=== PATIENT | male | born 2000 | race Caucasian/White ===

== ENCOUNTER 2018-07-22 11:26 | Outpatient (REF) | payer OTHER, SELFPAY | END 2018-07-22 11:46 | LOC: LBN 11:26 | PROVIDERS: Visit Provider Physician Assistant | DX: S61.039A Puncture wound without foreign body of unspecified thumb without damage to nail, initial encounter (principal); W54.0XXA Bitten by dog, initial encounter | CPT/HCPCS: 87070; 87205 ==

== ENCOUNTER 2018-08-03 14:34 | Emergency (ER) | payer OTHER, SELFPAY ==
[2018-08-03 14:59] VITALS: BP 121/69; PULSE 87; RESP 16; TEMP 36
--- NOTE | 2018-08-03 15:24 | DI.RAD_ITS ---
SYMPTOM/DIAGNOSIS: LACERATION WEBSPACE BETWEEN 3RD AND 4TH RIGHT HAND: Three views. No bone or joint abnormality is identified. No radiopaque foreign bodies are seen in the soft tissues. IMPRESSION: Negative examination.
--- NOTE | 2018-08-03 15:26 | W.ED.GENAD ---
Discharge Plan Disposition Patient Disposition: HOME Discharge Details Chief Complaint: Laceration Clinical Impression: Laceration of digital nerve of finger, Laceration of finger of right hand Reason For Visit: LAC Primary Care Provider: [facility],[place] ED Provider: Tarun Caceres Home Meds and New Rx's Prescriptions: Continue atomoxetine [Strattera] 60 mg Capsule 60 mg PO DAILY AM RF: 0 Discharge Instructions Instructions: Finger Laceration (ED) Additional Instructions: Keep dressing clean, dry, and intact. NO use of right 4th digit. Follow-up with orthopedics [phone]. Call Saturday to schedule an appointment. Return to the ER for any worsening or new concerning symptoms. Referrals: [facility] [Provider Group] Medical Decision Making 18yo m here 1 day after lacerated website between rt 3rd and 4th digits. Full strength and digits. Decreased sensation lateral surface of 4th digit. xray of the right hand reviewed and interpreted by me: no fb, no fracture. Wound dressed. Tetanus immunization utd. Suspect digital nerve laceration. Will have patient follow-up with orthopedics tomorrow. HPI General Mode of arrival: ambulatory. Date/Time Provider Initiated Documentation: 08/03/18 15:17. Limitations to Documentation: no limitations. Information obtained by: patient. HPI Narrative: 18-year-old male presents with chief complaint of laceration. Patient notes that he was snowboarding yesterday and cut his finger on the edge of his snowboard. Laceration is between his third and fourth digits on the right hand. Laceration was deep and bleeding. Bleeding is stopped. No modifiers. He has associated paresthesias of the lateral surface of his fourth digit and distally at the tip of his finger. Tetanus is up-to-date. Related Data Home Medications Medication Instructions Recorded Confirmed atomoxetine [Strattera] 60 mg PO DAILY AM 08/03/18 08/03/18 Allergies Allergy/AdvReac Type Severity Reaction Status Date / Time No Known Allergies Allergy Unverified 08/03/18 15:02 General Stated Complaint: Laceration HEIDI: 4 Review of Systems Musculoskeletal Reports tingling Integumentary/Breasts Reports as per HPI Neurologic Reports as per HPI, Reports tingling and Reports paresthesias Exam Const General: cooperative and no acute distress Cardio Rate: regular rate and not tachycardic Rhythm: regular rhythm Pulses: radial pulses present on the right 2+ Skin General skin exam: no rashes or lesions noted Neuro General: alert and awake Extrem General: no edema and other Right upper extremity: hand Details: neurosensory exam abnormal Details: digital nerve sensory function normal Location: in the 4th digit (lateral digit with decreased sensation), tendon exam normal and laceration (webspace, 2cm, wound approximated with no bleeding) Course Vital Signs Temperature 36 C L 08/03/18 14:59 Pulse 87 08/03/18 14:59 Respiratory Rate 16 08/03/18 14:59 Blood Pressure 121/69 08/03/18 14:59 Temperature 36 C L 08/03/18 14:59 Temperature Source Temporal Artery Scan 08/03/18 14:59 Pulse 87 08/03/18 14:59 Respiratory Rate 16 08/03/18 14:59 Respiratory Effort 08/03/18 15:03 Blood Pressure 121/69 08/03/18 14:59 Blood Pressure Position Sitting 08/03/18 14:59 Oxygen Delivery Method Room Air 08/03/18 14:59 Oxygen Flow Rate 0 08/03/18 14:59
--- NOTE | 2018-08-03 15:32 | ED.GENADUL_ITS ---
Discharge Plan Disposition Patient Disposition: HOME Discharge Details Chief Complaint: Laceration Clinical Impression: Laceration of digital nerve of finger, Laceration of finger of right hand Reason For Visit: LAC Primary Care Provider: [place] ED Provider: Tarun Caceres Home Meds and New Rx's Prescriptions: Continue atomoxetine [Strattera] 60 mg Capsule 60 mg PO DAILY AM RF: 0 Discharge Instructions Instructions: Finger Laceration (ED) Additional Instructions: Keep dressing clean, dry, and intact. NO use of right 4th digit. Follow-up with orthopedics [phone]. Call Saturday to schedule an appointment. Return to the ER for any worsening or new concerning symptoms. Referrals: [facility] [Provider Group] Medical Decision Making 18yo m here 1 day after lacerated website between rt 3rd and 4th digits. Full strength and digits. Decreased sensation lateral surface of 4th digit. xray of the right hand reviewed and interpreted by me: no fb, no fracture. Wound dressed. Tetanus immunization utd. Suspect digital nerve laceration. Will have patient follow-up with orthopedics tomorrow. HPI General Mode of arrival: ambulatory . Date/Time Provider Initiated Documentation: 08/03/18 15:17 . Limitations to Documentation: no limitations . Information obtained by: patient . HPI Narrative: 18-year-old male presents with chief complaint of laceration. Patient notes that he was snowboarding yesterday and cut his finger on the edge of his snowboard. Laceration is between his third and fourth digits on the right hand. Laceration was deep and bleeding. Bleeding is stopped. No modifiers. He has associated paresthesias of the lateral surface of his fourth digit and distally at the tip of his finger. Tetanus is up-to-date. Related Data Home Medications Medication Instructions Recorded Confirmed atomoxetine [Strattera] 60 mg PO DAILY AM 08/03/18 08/03/18 Allergies Allergy/AdvReac Type Severity Reaction Status Date / Time No Known Allergies Allergy Unverified 08/03/18 15:02 General Stated Complaint: Laceration HEIDI: 4 Review of Systems Musculoskeletal Reports tingling Integumentary/Breasts Reports as per HPI Neurologic Reports as per HPI, Reports tingling and Reports paresthesias Exam Const General: cooperative and no acute distress Cardio Rate: regular rate and not tachycardic Rhythm: regular rhythm Pulses: radial pulses present on the right 2+ Skin General skin exam: no rashes or lesions noted Neuro General: alert and awake Extrem General: no edema and other Right upper extremity: hand Details: neurosensory exam abnormal Details: digital nerve sensory function normal Location: in the 4th digit (lateral digit with decreased sensation), tendon exam normal and laceration (webspace, 2cm, wound approximated with no bleeding) Course Vital Signs Temperature 36 C L 08/03/18 14:59 Pulse 87 08/03/18 14:59 Respiratory Rate 16 08/03/18 14:59 Blood Pressure 121/69 08/03/18 14:59 Temperature 36 C L 08/03/18 14:59 Temperature Source Temporal Artery Scan 08/03/18 14:59 Pulse 87 08/03/18 14:59 Respiratory Rate 16 08/03/18 14:59 Respiratory Effort 08/03/18 15:03 Blood Pressure 121/69 08/03/18 14:59 Blood Pressure Position Sitting 08/03/18 14:59 Oxygen Delivery Method Room Air 08/03/18 14:59 Oxygen Flow Rate 0 08/03/18 14:59
--- NOTE | 2018-08-03 16:01 | DI.VRAD_ITS ---
EXAM: XR Right Hand Complete, 3 or more Views EXAM DATE/TIME: 08/03/2018 3:25 PM CLINICAL HISTORY: 18 years old, male; Injury or trauma; Injury history: Laceration; Initial encounter; Hand; Right; Injury details: Between and ; Patient HX: Laceration webspaced between and TECHNIQUE: XR Right hand 3 or more views. COMPARISON: No relevant prior studies available. FINDINGS: The bony structures are in anatomic alignment. No fracture is present. No radiopaque foreign body is identified. The joint spaces are well maintained. IMPRESSION: No evidence of acute bony abnormality. Dictated and Authenticated by: Ernst Chaney MD. Ordering:COLBY PALACIOS MD
== END 2018-08-03 16:26 | disposition home or self-care (01) ==
PROVIDERS: Emergency Provider Student in an Organized Health Care Education/Training Program
DX: S64.494A Injury of digital nerve of right ring finger, initial encounter (principal); S61.214A Laceration without foreign body of right ring finger without damage to nail, initial encounter; R20.2 Paresthesia of skin; W26.8XXA Contact with other sharp object(s), not elsewhere classified, initial encounter; Y93.23 Activity, snow (alpine) (downhill) skiing, snowboarding, sledding, tobogganing and snow tubing
CPT/HCPCS: 99283; 73130